=== PATIENT | female | born 1960 | race Native Hawaiian/Other Pacific Islander ===

== ENCOUNTER 2021-11-06 17:31 | Emergency (ER) | payer SELFPAY ==
[~2021-11-06] VITALS: Ht 160 cm; Wt 97.7 kg
[2021-11-06 17:43] VITALS: BP 146/94; PULSE 103; TEMP 98.7
[2021-11-06] MEDS ORDERED: AMOXICILLIN 8751 TAB PO (18:29)
== END 2021-11-06 19:10 | disposition home or self-care (01) ==
LOC: COL.ER 17:31
DX: K05.30 Chronic periodontitis, unspecified (principal); Z87.891 Personal history of nicotine dependence; Z28.310 Unvaccinated for COVID-19